=== PATIENT | male | born 1980 | race Caucasian/White ===

== ENCOUNTER 2017-05-01 19:05 | Emergency (ER) | payer OTHER ==
[~2017-05-01] VITALS: Ht 175.3 cm; Wt 77.0 kg
[2017-05-01 19:09] VITALS: Ht 175.3 cm; Wt 77.0 kg
[2017-05-01] MEDS ORDERED: BUPIVACAINE 0.25% (MPF) 10 ML 10 ML VIAL INJ ONE (21:30)
[2017-05-01] MEDS ORDERED: CYCL-319 PO (21:34)
[2017-05-01] MEDS ORDERED: IBUP-1542 PO (21:34)
--- NOTE | 2017-05-01 21:42 | ERD ---
ER Documentation Chief Complaint Date/Time DATE: 05/01/17 TIME: 21:35 Chief Complaint back pain after carrying heavy load at work today HPI 37-year-old male complaining of back pain 1 day. Patient stated that he was lifting heavy box at work, he turned quickly while lifting the box, and felt sharp pain on his left lower back. He had a hard time walking because the pain. The pain also radiates down to his leg. Denies saddle paresthesia. Denies bowel or bladder dysfunctions. Denies fever or chills. ROS All systems reviewed and are negative except as per history of present illness. Medications Home Meds Active Scripts Cyclobenzaprine Hcl* (Cyclobenzaprine Hcl*) 10 Mg Tablet, 10 MG PO TID, #15 TAB Prov:CRYSTAL MONTE. PROJECT HIRE 05/01/17 Ibuprofen* (Motrin*) 600 Mg Tab, 600 MG PO Q6H Y for PAIN AND OR ELEVATED TEMP, #30 TAB Prov:CRYSTAL MONTE. PROJECT HIRE 05/01/17 Allergies Allergies: Coded Allergies: Penicillins (Verified Allergy, Unknown, 05/01/17) PMhx/Soc Medical and Surgical Hx: pt denies Medical Hx, pt denies Surgical Hx Hx Alcohol Use: No Hx Substance Use: No Hx Tobacco Use: No Smoking Status: Never smoker Physical Exam Vitals Vital Signs Date Time Temp Pulse Resp B/P Pulse Ox O2 Delivery O2 Flow Rate FiO2 05/01/17 19:09 99.1 77 20 110/76 99 Physical Exam General: Well-developed, well-nourished, conscious and coherent, in no distress Skin: Warm and dry without rash, good texture and turgor Head: Normocephalic without evidence of trauma Eyes: Sclera and conjunctivae normal; pupils equal, round, and reactive to light; extraocular movements are intact Neck: Supple without meningismus or adenopathy. Carotids are equal. Trachea midline. No bruits or JVD Chest: Normal AP diameter. Good expansion without retractions. Nontender. Lungs are clear to auscultate bilaterally with good tidal volume Heart: Regular rate and rhythm. No murmur, rub, or gallops heard Back: Without spinal or CVA tenderness. Tenderness and muscle spasm noted in the left gluteal region. Pelvis: Nontender to palpation and stable to compression Extremities: Full range of motion. Good strength bilaterally. No clubbing, cyanosis, or edema. Peripheral pulses are intact. Sensation intact Neuro: Alert and oriented 4, GCS 15. Cranial nerves grossly intact. Motor and sensory exams nonfocal. Moves all extremities. Speech clear. Results 24 hrs Current Medications Medications (Trade) Dose Ordered Sig/Vaibhav Route PRN Reason Start Time Stop Time Status Last Admin Dose Admin Bupivacaine HCl (Marcaine 0.25% (Mpf) 10 ml) 10 ml ONCE ONCE INJ 05/01/17 21:30 05/01/17 21:31 DC Bupivacaine HCl (Marcaine 0.25% (Mpf) 30 ml) 10 ml ONCE ONCE INJ 05/01/17 22:00 05/01/17 22:01 DC Procedures/MDM Well-appearing 37-year-old male present ED with left-sided lower back pain from lifting a heavy box. Patient does not have any midline spinal tenderness. I doubt spinal fracture, subluxation, or disc herniation. I doubt spinal epidural abscess, cauda equina syndrome. Symptoms and exam findings are consistent with muscle strain. Procedure note: Trigger point injection Trigger point injection performed by me. 10 mL of bupivacaine is injected into gluteal region. Total number muscle groups injected: 1. Patient reports improvement of pain after the trigger point injection. Patient appears well, stable for discharge and outpatient management. Medical decision making shared with patient and family. Education provided to patient and family. Patient and family expressed understanding of the plan. Medications on discharge: Ibuprofen, Flexeril. Follow-up: Primary care provider in 2-3 days or return to ED if worse. Disclaimer: Inadvertent spelling and grammatical errors are likely due to EHR/ dictation software use and do not reflect on the overall quality of patient care. Also, please note that the electronic time recorded on this note does not necessarily reflect the actual time of the patient encounter. Departure Diagnosis: Primary Impression: Back strain Encounter type: initial encounter Qualified Code: S39.012A - Back strain, initial encounter Condition: Stable Patient Instructions: Back Care Tips, Back Sprain/Strain [facility] Usted se ramesh hecho un examen mdico de control que le indica que no est en sarbjit condicin que requiera tratamiento urgente en el Departamento de Emergencia. Un estudio ms profundo y el tratamiento de laboy condicin pueden esperar sin ningn riesgo hasta que usted sea atendida/o en el consultorio de laboy mdico o sarbjit cl vanessa. Es responsabilidad suya arreglar sarbjit ana para el seguimiento del dave. MANEJO DE CONDICIONES NO URGENTES EN EL FUTURO 1) Si usted tiene un mdico de atencin primaria: Usted debera llamar a laboy mdico de atencin primaria antes de venir al departamento de emergencia. Despus de las horas de consultorio, laboy doctor o laboy asociado/a est disponible por telfono. El mdico o enfermero de rosalio en el servicio telefnico puede asesorarle por joaquin medio para atender el problema, o dave contrario se puede programar sarbjit ana. 2) Si usted no tiene un mdico de atencin primaria: Llame al mdico o clnica de referencia que aparece abajo sterling las horas de consultorio para hacer sarbjit ana para que le vean. CLINICAS: [facility] [phone] [facility] [phone] [facility]. [facility] [phone] [facility]. [place] [phone] [facility]. [place] [phone] [facility]. [phone] [address] Additional Instructions: Llame al doctor MAANA y vielka sarbjit ANA PARA DENTRO DE 2-3 ANTON.Dgale a la secretaria que nosotros le instruimos hacer esta ana.Avise o llame si laboy condicin se empeora antes de la ana. Regresa aqui si peor o no mejor. CRYSTAL MONTE NP May 01, 2017 21:42
[2017-05-01] MEDS ORDERED: BUPIVACAINE 0.25% (MPF) 30 ML INJ INJ ONE (22:00)
== END 2017-05-01 22:25 | disposition home or self-care (01) ==
LOC: FTE 19:05
DX: S39.012A Strain of muscle, fascia and tendon of lower back, initial encounter (principal); X50.0XXA Overexertion from strenuous movement or load, initial encounter; Y92.9 Unspecified place or not applicable
CPT/HCPCS: 20552; Z7502; Z7610